=== PATIENT | female | born 1940 | race Caucasian/White ===

== ENCOUNTER 2017-11-30 14:39 | Emergency (ER) | payer MEDICARE, OTHER ==
[~2017-11-30] VITALS: Ht 160 cm; Wt 55.0 kg
[~2017-11-30 14:39] MED LIST: CARB25TA9 PO; CLON0.5T PO; LANS30CA PO; LEVO88TA2 PO; MEMA28CA PO; OXYB5TAB8 PO; PRIM50TA5 PO; VENL225T PO; ZOCO40TA PO
[2017-11-30 14:46] VITALS: BP 139/63; PULSE 60; RESP 18; TEMP 98.3; O2SAT 99
--- NOTE | 2017-11-30 15:33 | PD ---
HPI Chief Complaint: Complaint Time Seen by Provider: 15:26 Travel History International Travel<30 days: No Contact w/Intl Traveler<30days: No Traveled to known affect area: No History of Present Illness HPI patient per home health nurse and has been more aggressive, scratching, fighting and pushing people around. per patient was taken to [facility] on sunday ? where according to they did xray, cat scan , blood work , urinalysis and diagnosed her with UTI and placed her on keflex....attempted to obtain records from [facility]. today patient arrives with family for same complaint that has not improved since starting medication and are concerned for a psychiatric conditiion...per FAMILY no psych history presently all:?codeine pmhx: dementia, alzheimer's dementia, kidney stone, hep c, hyst PFSH Past Medical History Alzheimer's Disease: Yes Dementia: Yes Hepatitis: Yes (HEP C) Kidney Stones: Yes Past Surgical History Hysterectomy: Yes Social History Alcohol Use: Yes (OCCASIONAL WINE) Tobacco Use: No Substance Use: No Allergies-Medications (Allergen,Severity, Reaction): Coded Allergies: codeine (Verified Allergy, Severe, 11/30/17) No Known Allergies (Unverified Adverse Reaction, Unknown, 11/30/17) Reported Meds & Prescriptions Reported Meds & Active Scripts Active Reported Lansoprazole 30 Mg Capdr 30 Mg PO DAILY Ditropan (Oxybutynin Chloride) 5 Mg Tab 5 Mg PO DAILY Venlafaxine ER 24 HR (Venlafaxine HCl) 225 Mg Tab 225 Mg PO DAILY Namenda Xr (Memantine) 28 Mg Caper 28 Mg PO DAILY Zocor (Simvastatin) 40 Mg Tab 40 Mg PO DAILY Clonazepam 0.5 Mg Tab 0.5 Mg PO DAILY Carbidopa-Levodopa 25-100 Mg Tab 1 Tab PO Q8HR Primidone 50 Mg Tab 50 Mg PO Q6HR Levothyroxine (Levothyroxine Sodium) 88 Mcg Tab 0.5 Tab PO DAILY Review of Systems ROS Limitations: Altered Mental Status General / Constitutional: No: Fever Eyes: No: Visual changes HENT: No: Headaches Cardiovascular: No: Chest Pain or Discomfort Respiratory: No: Shortness of Breath Gastrointestinal: No: Abdominal Pain Genitourinary: No: Dysuria Musculoskeletal: No: Pain Skin: No Rash Neurologic: No: Weakness Psychiatric: No: Depression Endocrine: No: Polydipsia Hematologic/Lymphatic: No: Easy Bruising Physical Exam Narrative GENERAL: elderly white female, with resting tremor. SKIN: Warm and dry. HEAD: Atraumatic. Normocephalic. EYES: Pupils equal and round. No scleral icterus. No injection or drainage. ENT: No nasal bleeding or discharge. Mucous membranes pink and moist. NECK: Trachea midline. No JVD. CARDIOVASCULAR: Regular rate and rhythm. RESPIRATORY: No accessory muscle use. Clear to auscultation. Breath sounds equal bilaterally. GASTROINTESTINAL: Abdomen soft, non-tender, nondistended. Hepatic and splenic margins not palpable. MUSCULOSKELETAL: Extremities without clubbing, cyanosis, or edema. No obvious deformities. NEUROLOGICAL: confused, appears pleasant at this time... No obvious cranial nerve deficits. Motor grossly within normal limits. Five out of 5 muscle strength in the arms and legs. Normal speech. PSYCHIATRIC: AGITATED BUT NONVIOLENT THUS FAR Data Data Last Documented VS Vital Signs Date Time Temp Pulse Resp B/P (MAP) Pulse Ox O2 Delivery O2 Flow Rate FiO2 11/30/17 14:46 98.3 60 18 139/63 (88) 99 Orders Orders Complete Blood Count With Diff (11/30/17 15:10) Comprehensive Metabolic Panel (11/30/17 15:10) Urinalysis - C+S If Indicated (11/30/17 15:10) Psych Screen (11/30/17 15:10) Ceftriaxone Inj (Rocephin Inj) (11/30/17 16:00) Admit Order (Ed Use Only) (11/30/17 18:23) Labs Laboratory Tests Test 11/30/17 16:25 11/30/17 17:50 White Blood Count 6.9 TH/MM3 Red Blood Count 4.21 MIL/MM3 Hemoglobin 12.9 GM/DL Hematocrit 37.7 % Mean Corpuscular Volume 89.5 FL Mean Corpuscular Hemoglobin 30.6 PG Mean Corpuscular Hemoglobin Concent 34.2 % Red Cell Distribution Width 13.4 % Platelet Count 174 TH/MM3 Mean Platelet Volume 8.7 FL Neutrophils (%) (Auto) 56.7 % Lymphocytes (%) (Auto) 33.2 % Monocytes (%) (Auto) 8.2 % Eosinophils (%) (Auto) 1.3 % Basophils (%) (Auto) 0.6 % Neutrophils # (Auto) 3.9 TH/MM3 Lymphocytes # (Auto) 2.3 TH/MM3 Monocytes # (Auto) 0.6 TH/MM3 Eosinophils # (Auto) 0.1 TH/MM3 Basophils # (Auto) 0.0 TH/MM3 CBC Comment DIFF FINAL Differential Comment Blood Urea Nitrogen 16 MG/DL Creatinine 1.09 MG/DL Random Glucose 83 MG/DL Total Protein 6.2 GM/DL Albumin 3.3 GM/DL Calcium Level 8.2 MG/DL Alkaline Phosphatase 65 U/L Aspartate Amino Transf (AST/SGOT) 16 U/L Alanine Aminotransferase (ALT/SGPT) 15 U/L Total Bilirubin 0.6 MG/DL Sodium Level 145 MEQ/L Potassium Level 3.4 MEQ/L Chloride Level 109 MEQ/L Carbon Dioxide Level 27.5 MEQ/L Anion Gap 9 MEQ/L Estimat Glomerular Filtration Rate 48 ML/MIN MDM Medical Decision Making Medical Screen Exam Complete: Yes Emergency Medical Condition: Yes Medical Record Reviewed: Yes Differential Diagnosis ams v uti v electrolyte abnl v dementia deterioration Narrative Course CMP HAS CREAT 1.09 AND GFR 48.... CBC IS NEG FOR LEUKOCYTOSIS, NEG FOR ANEMIA, NEG FOR LEFT SHIFT, NO ABNL PLATELET REVIEWED MEMORIAL RECORDS WITH CT HEAD NEG, UA WITH MOD BACTERIA, LEUK 3+ Diagnosis Primary Impression: medical clearance Additional Impressions: uti dementia Admitting Information Admitting Physician Requests: Jose Cruz Van MD Nov 30, 2017 15:33
[2017-11-30] MEDS ORDERED: cefTRIAXone INJ 1,000 MG in SODIUM CHLORIDE 0.9% INJ 100 ML IV ONE (16:00)
[2017-11-30 16:50] LABS: AUTOMATED NEUTROPHIL # 3.9 TH/MM3 (1.8-7.7); BASOPHIL % 0.6 % (0.0-2.0); EOSINOPHIL # 0.1 TH/MM3 (0-0.4); EOSINOPHIL % 1.3 % (0.0-4.0); HEMATOCRIT 37.7 % (35.0-46.0); HEMOGLOBIN 12.9 GM/DL (11.6-15.3); LYMPH % 33.2 % (9.0-44.0); LYMPHOCYTE # 2.3 TH/MM3 (1.0-4.8); MEAN CELL VOLUME 89.5 FL (80.0-100.0); MEAN CORPUSCULAR HEMOGLOBIN 30.6 PG (27.0-34.0); MEAN CORPUSCULAR HGB CONC 34.2 % (32.0-36.0); MEAN PLATELET VOLUME 8.7 FL (7.0-11.0); MONO % 8.2 % (0.0-8.0); MONOCYTE # 0.6 TH/MM3 (0-0.9); NEUT % 56.7 % (16.0-70.0); PLATELET COUNT 174 TH/MM3 (150-450); RED BLOOD COUNT 4.21 MIL/MM3 (4.00-5.30); RED CELL DISTRIBUTION WIDTH 13.4 % (11.6-17.2); WHITE BLOOD COUNT 6.9 TH/MM3 (4.0-11.0)
[2017-11-30 17:07] LABS: ALBUMIN 3.3 GM/DL (3.4-5.0); AST (GOT) 16 U/L (15-37); BICARBONATE 27.5 MEQ/L (21.0-32.0); BLOOD UREA NITROGEN 16 MG/DL (7-18); CALCIUM 8.2 MG/DL (8.5-10.1); CHLORIDE 109 MEQ/L (98-107); CREATININE 1.09 MG/DL (0.50-1.00); GLOMERULAR FILTRATION RATE 48 ML/MIN (>89); GLUCOSE,RANDOM 83 MG/DL (74-106); SODIUM (NA) 145 MEQ/L (136-145)
[2017-11-30 17:12] LABS: ALKALINE PHOSPHATASE 65 U/L (45-117); ALT (GPT) 15 U/L (10-53); TOTAL BILIRUBIN ADULT 0.6 MG/DL (0.2-1.0); TOTAL PROTEIN 6.2 GM/DL (6.4-8.2)
[2017-11-30 18:38] LABS: BACTERIA, URINE RARE /hpf; BILIRUBIN, URINE NEG (NEG); BLOOD, URINE NEG (NEG); GLUCOSE,URINE NEG (NEG); KETONE, URINE NEG (NEG); MUCUS URINE FEW /lpf (OCC); NITRITE,URINE NEG (NEG); PH, URINE 5.5 (5.0-8.5); URINE COLOR YELLOW (YELLW/STRAW); URINE LEUKOCYTE ESTERASE TRACE (NEG)
[2017-11-30] MEDS ORDERED: SODIUM CHLORIDE 0.9% FLUSH 10 ML FLUSH IV FLUSH PRN (18:45)
--- NOTE | 2017-11-30 19:13 | PD ---
History of Present Illness Chief Complaint: Complaint Time Seen by Provider: 18:15 Travel History International Travel<30 Days: No Contact w/Intl Traveler<30days: No Known affected area: No Legal Status Legal Status: Voluntary History of Present Illness: History of Present Illness HPI Patient is a 77-year-old, female, living with her with reported history of depression, anxiety, dementia, essential tremors, UTI diagnosed 2 days ago at [facility] who as her per home health nurse and has been more aggressive, scratching, fighting and pushing people around and increased episodes of crying. Today patient arrives with family for same complaint that has not improved since starting medication and are concerned for her from a psychiatric perspective. The patient was seen at her neurologist office Dr. Shaver, this past Sunday and her psychiatric medications were changed with increase of Ativan to 1 mg twice a day, continued on Klonopin 0.5 mg 3 times a day, Lexapro 20 mg and Namenda XR 28 mg. EMR reviewed. Javon at bedside and assist with providing some clinical information. No previous contact with [facility] psychiatry. The patient is seen in main ED. Alert and oriented to person, knows it's Sunday , states the date is the 2017. She knows she is at [facility]. She is able to name the president omaira Pagan and name 2 past presidents - Unruly and Tito. She is dressed in hospital gown with fair hygiene. She has involuntary and rhythmic shaking of her head and her upper extremities. She tells me she has been diagnosed with essential tremors. She is engaging and cooperative. Her voice is tremulous. She makes an effort in engaging in interview. She does not appear to be internally stimulated. There is no paranoia, no delusions. She does report that at times she hears noises "like a muriel-muriel train going by my head or Zonia balls going through my head." When asked for reason of being in the hospital she states" to get rid of this sorry but feeling from my mind. I am needing to get everyone's help to help me get better". Patient admits to feeling sad. She also acknowledges feeling angry" when I don't get my way " but she denies being aggressive. Mood is depressed. She denies suicidal ideation but does tell me that she thinks about suicide and about dying. She reports she sleeps well and has a good appetite. Her concentration is fair. Fund of knowledge appears to be average. The is concerned about the changes in the patient's behaviors as she normally is not aggressive. He is also concerned due to her increase in crying and her lack of motivation to do things they used to do in the past. He is concerned about taking the patient home since she has not shown improvement despite being on antibiotics. He states that in the past when she's had an UTI once she gets on the medication she is better. PFSH Past Medical History Medical History: Unable to Obtain Alzheimer's Disease: Yes Dementia: Yes Hepatitis: Yes (HEP C) Kidney Stones: Yes Influenza Vaccination: No Past Surgical History Surgical History: Unable to Obtain Hysterectomy: Yes Psychiatric History Psychiatric History Hx Psychiatric Treatment: IN 2016 HOSPITALIZED X 3 WEEKS IN PSYCH INPATIENT UNIT IN [place] History of Inpatient Treatment: Yes Guns or firearms in home: No Social History Born in [place]. twice. Has been to current for 15 years. She has a daughter and a son. 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 Hx Alcohol Use: Yes (OCCASIONAL WINE) Hx Tobacco Use: No Hx Substance Use: No Hx of Substance Use Treatment: No Family Psychiatric History Negative Allergies-Medications (Allergen,Severity, Reaction): Coded Allergies: codeine (Verified Allergy, Severe, 11/30/17) No Known Allergies (Unverified Allergy, Unknown, 11/30/17) Reported Meds & Prescriptions Reported Meds & Active Scripts Active Reported Lansoprazole 30 Mg Capdr 30 Mg PO DAILY Ditropan (Oxybutynin Chloride) 5 Mg Tab 5 Mg PO DAILY Venlafaxine ER 24 HR (Venlafaxine HCl) 225 Mg Tab 225 Mg PO DAILY Namenda Xr (Memantine) 28 Mg Caper 28 Mg PO DAILY Zocor (Simvastatin) 40 Mg Tab 40 Mg PO DAILY Clonazepam 0.5 Mg Tab 0.5 Mg PO DAILY Carbidopa-Levodopa 25-100 Mg Tab 1 Tab PO Q8HR Primidone 50 Mg Tab 50 Mg PO Q6HR Levothyroxine (Levothyroxine Sodium) 88 Mcg Tab 0.5 Tab PO DAILY Review of Systems Genitourinary: COMPLAINS OF: Urinary frequency Neurologic: COMPLAINS OF: Tremor, Poor Balance Psychiatric: COMPLAINS OF: Anxiety, Depression Mental Status Examination Appearance: Appropriate Consciousness: Alert Orientation: Person, Place, Date/Time (partial), Situation Speech: Hesitant, Slow, Other (tremulous) Language: Adequate Fund of Knowledge: Adequate Attention and Concentration: Adequate Memory: Impaired Mood: Sad Affect: Appropriate Thought Process & Associations: Intact, Logical Thought Content: Appropriate Hallucination Type: Auditory (bells, train) Delusion Type: None Suicidal Ideation: No Suicidal Plan: No Suicidal Intention: No Homicidal Ideation: No Homicidal Plan: No Homicidal Intention: No Insight: Fair Judgment: Poor MDM Medical Decision Making Medical Record Reviewed: Yes Assessment/Plan Patient is a 77-year-old, female, living with her with reported history of depression, anxiety, dementia, essential tremors, UTI diagnosed 2 days ago at [facility] who as her per home health nurse and has been more aggressive, scratching, fighting and pushing people around and increased episodes of crying. Patient also with recent changes in psychiatric medication by her neurologist Dr. Shaver. At this time the patient meets criteria for inpatient psychiatric admission for further observation, for medication evaluation and adjustment, and for safety. Orders Orders Complete Blood Count With Diff (11/30/17 15:10) Comprehensive Metabolic Panel (11/30/17 15:10) Urinalysis - C+S If Indicated (11/30/17 15:10) Psych Screen (11/30/17 15:10) Ceftriaxone Inj (Rocephin Inj) (11/30/17 16:00) Admit Order (Ed Use Only) (11/30/17 18:23) Place In Observation (11/30/17 ) Vital Signs (Adult) CAROL.Q4H (11/30/17 18:31) Activity Oob With Assistance (11/30/17 18:31) Diet Heart Healthy (11/30/17 Dinner) Sodium Chloride 0.9% Flush (Ns Flush) (11/30/17 18:45) Sodium Chloride 0.9% Flush (Ns Flush) (11/30/17 21:00) Results Vital Signs Date Time Temp Pulse Resp B/P (MAP) Pulse Ox O2 Delivery O2 Flow Rate FiO2 11/30/17 14:46 98.3 60 18 139/63 (88) 99 Laboratory Tests Test 11/30/17 16:25 11/30/17 17:50 White Blood Count 6.9 Red Blood Count 4.21 Hemoglobin 12.9 Hematocrit 37.7 Mean Corpuscular Volume 89.5 Mean Corpuscular Hemoglobin 30.6 Mean Corpuscular Hemoglobin Concent 34.2 Red Cell Distribution Width 13.4 Platelet Count 174 Mean Platelet Volume 8.7 Neutrophils (%) (Auto) 56.7 Lymphocytes (%) (Auto) 33.2 Monocytes (%) (Auto) 8.2 Eosinophils (%) (Auto) 1.3 Basophils (%) (Auto) 0.6 Neutrophils # (Auto) 3.9 Lymphocytes # (Auto) 2.3 Monocytes # (Auto) 0.6 Eosinophils # (Auto) 0.1 Basophils # (Auto) 0.0 CBC Comment DIFF FINAL Differential Comment Blood Urea Nitrogen 16 Creatinine 1.09 Random Glucose 83 Total Protein 6.2 Albumin 3.3 Calcium Level 8.2 Alkaline Phosphatase 65 Aspartate Amino Transf (AST/SGOT) 16 Alanine Aminotransferase (ALT/SGPT) 15 Total Bilirubin 0.6 Sodium Level 145 Potassium Level 3.4 Chloride Level 109 Carbon Dioxide Level 27.5 Anion Gap 9 Estimat Glomerular Filtration Rate 48 Urine Color YELLOW Urine Turbidity CLEAR Urine pH 5.5 Urine Specific [place] 1.021 Urine Protein TRACE Urine Glucose (UA) NEG Urine Ketones NEG Urine Occult Blood NEG Urine Nitrite NEG Urine Bilirubin NEG Urine Urobilinogen 2.0 Urine Leukocyte Esterase TRACE Urine WBC 2 Urine Bacteria RARE Urine Mucus FEW Microscopic Urinalysis Comment CULT NOT INDICATED Diagnosis Primary Impression: Major depressive disorder Additional Impressions: dementia Anxiety Admitting Information Admitting Physician Requests: Admit Problem Qualifiers Primary Impression: Major depressive disorder Qualified Codes: F33.1 - Major depressive disorder, recurrent, moderate Kemi Pruitt Nov 30, 2017 19:13
[2017-11-30] MEDS ORDERED: diphenhydrAMINE HCL 50 MG/ML VIAL IM ONE (20:00)
[2017-11-30] MEDS ORDERED: OLANZapine IM 10 MG VIAL IM ONE (20:00)
[2017-11-30] MEDS ORDERED: ASPI81CH6 CHEW (20:44)
[2017-11-30] MEDS ORDERED: LEVO.05 PO (20:44)
[2017-11-30] MEDS ORDERED: CEPH500C PO (20:44)
[2017-11-30] MEDS ORDERED: ESCI20TA PO (20:44)
[2017-11-30] MEDS ORDERED: LORA1TAB12 PO (20:44)
[2017-11-30] MEDS ORDERED: SODIUM CHLORIDE 0.9% FLUSH 10 ML FLUSH IV FLUSH SCH (21:00)
== END 2017-11-30 21:40 ==
LOC: NEPD 14:39 → NEDA 18:24 → UNDOADMOB 18:24 → NEPD 21:40
DX: F33.1 Major depressive disorder, recurrent, moderate (principal); N39.0 Urinary tract infection, site not specified; F02.80 Dementia in other diseases classified elsewhere, unspecified severity, without behavioral disturbance, psychotic disturbance, mood disturbance, and anxiety; F41.9 Anxiety disorder, unspecified; G30.9 Alzheimer's disease, unspecified; Z86.19 Personal history of other infectious and parasitic diseases; Z87.442 Personal history of urinary calculi; Z88.5 Allergy status to narcotic agent; Z79.899 Other long term (current) drug therapy
CPT/HCPCS: 80053; 81001; 85025; 96374; 99285; J0696

== ENCOUNTER 2017-11-30 20:22 | Inpatient (IN) | payer MEDICARE, OTHER ==
[2017-11-30] MEDS ORDERED: LORA1TAB12 PO (20:44)
[2017-11-30] MEDS ORDERED: CEPH500C PO (20:44)
[2017-11-30] MEDS ORDERED: LEVO.05 PO (20:44)
[2017-11-30] MEDS ORDERED: ESCI20TA PO (20:44)
[2017-11-30] MEDS ORDERED: ASPI81CH6 CHEW (20:44)
[2017-11-30 22:00] VITALS: BP 138/82; PULSE 59; RESP 18; TEMP 97.4; O2SAT 98
[2017-11-30] MEDS ORDERED: ACETAMINOPHEN 325 MG TAB PO PRN (22:00)
[2017-11-30] MEDS ORDERED: MAGNESIUM HYDROXIDE SUSP 30 ML CUP PO PRN (22:00)
[2017-11-30] MEDS ORDERED: ALUMINUM/MAGNESIUM/SIMETH 30 ML CUP PO PRN (22:00)
[2017-12-01 06:22] VITALS: BP 164/71; PULSE 52; RESP 15; TEMP 98; O2SAT 95
[2017-12-01] MEDS ORDERED: PNEUMOCOCCAL POLYVALENT INJ 25 MCG/0.5 ML SYR IM ONE (09:00)
[2017-12-01 13:23] LABS: BICARBONATE 28.2 MEQ/L (21.0-32.0); BLOOD UREA NITROGEN 12 MG/DL (7-18); CALCIUM 8.9 MG/DL (8.5-10.1); CHLORIDE 107 MEQ/L (98-107); CREATININE 1.03 MG/DL (0.50-1.00); GLOMERULAR FILTRATION RATE 52 ML/MIN (>89); GLUCOSE,RANDOM 123 MG/DL (74-106); SODIUM (NA) 144 MEQ/L (136-145)
[2017-12-01 13:24] LABS: CHOLESTEROL 149 MG/DL (120-200); TRIGLYCERIDES 92 MG/DL (42-150)
[2017-12-01 13:49] LABS: CHOLESTEROL/ HDL RATIO 2.14 RATIO; HDL CHOLESTEROL 69.5 MG/DL (40.0-60.0); LDL CHOLESTEROL 61 MG/DL (0-99)
[2017-12-01 13:57] LABS: HEMOGLOBIN A1C 5.5 % (4.3-6.0)
--- NOTE | 2017-12-01 14:14 | HHI.HP ---
Provisional Diagnosis Admission Date Nov 30, 2017 at 21:49 Home I. Dementia with behavioral disturbances Certification of Person's Competence To Provide Express and Informed Consent I have personally examined Meaghan Heller , a person being served at [facility] on, Dec 01, 2017 14:10. Express and informed consent means consent voluntarily given in writing, by a competent person, after sufficient explanation and disclosure of the subject matter involved to enable the person to make a knowing and willful decision without any element of force, fraud, deceit, duress, or other form of constraint or coercion. This person is 18 years of age or older, is not now known to be incompetent to consent to treatment with a guardian advocate, and does not have a health care surrogate or proxy currently making medical treatment decisions. I have found this person to be one of the following: [] Competent to provide express and informed consent, as defined above, for voluntary admission to this facility and is competent to provide express and informed consent for treatment. He/she has the consistent capacity to make well reasoned, willful, and knowing decisions concerning his or her medical or mental health treatment. The person fully and consistently understands the purpose of the admission for examination/placement and is fully capable of personally exercising all rights assured [place] [x] Incompetent to provide express and informed consent to voluntary admission, and this is incompetent to provide express and informed consent to treatment. The person must be transferred to involuntary status and a petition for a guardian advocate filed with the Circuit Court. [] Refusing to provide express and informed consent to voluntary admission but is competent to provide express and informed consent for treatment. The person must be discharged or transferred to involuntary status. Form shall be completed within 24 hours of a person's arrival at the receiving facility and filed in the clinical record of each person: 1. Admitted on a voluntary basis 2. Permitted to provide express and informed consent to his/her own treatment 3. Allowed to transfer from involuntary to voluntary status 4. Prior to permitting a person to consent to his or her own treatment after having been previously found incompetent to consent to treatment. History of Present Illness Capacity: Lacks Capacity HPI The patient is a 77-year-old, female, domiciled with her with reported history of depression, anxiety, dementia, no previous psychiatric hospitalizations, no previous suicidal attempts, she is not in psychotropics, medical history of essential tremors, UTI diagnosed 2 days ago at [facility] who as her per home health nurse and has been more aggressive, scratching, fighting and pushing people around and increased episodes of crying. Today patient arrives with family for same complaint that has not improved since starting medication and are concerned for her from a psychiatric perspective. The patient was seen at her neurologist office Dr. Shaver, this past Sunday and her psychiatric medications were changed with increase of Ativan to 1 mg twice a day, continued on Klonopin 0.5 mg 3 times a day, Lexapro 20 mg and Namenda XR 28 mg.EMR reviewed. Javon at bedside and assist with providing some clinical information. She was admitted yesterday by Ms. Pruitt after being assessed in the ER. Today on psychiatric evaluation the patient is very oppositional, refusing to talk to me, to cooperate, she seems to be quite sedated was brought in by medications given before. As per Ms. Pruitt documentation yesterday : "patient is seen in main ED. Alert and oriented to person, knows it's Sunday, states the date is the 2017. She knows she is at [facility]. She is able to name the president omaira Pagan and name 2 past presidents -Unruly and Tito. She is dressed in hospital gown with fair hygiene. She has involuntary and rhythmic shaking of her head and her upper extremities. She tells me she has been diagnosed with essential tremors. She is engaging and cooperative. Her voice is tremulous. She makes an effort in engaging in interview. She does not appear to be internally stimulated. There is no paranoia, no delusions. She does report that at times she hears noises "like a muriel-muriel train going by my head or Zonia balls going through my head." When asked for reason of being in the hospital she states" to get rid of this sorry but feeling from my mind. I am needing to get everyone's help to help me get better". Patient admits to feeling sad. She also acknowledges feeling angry" when I don't get my way " but she denies being aggressive. Mood is depressed. She denies suicidal ideation but does tell me that she thinks about suicide and about dying. She reports she sleeps well and has a good appetite. Her concentration is fair. Fund of knowledge appears to be average." The is concerned about the changes in the patient's behaviors as she normally is not aggressive. He is also concerned due to her increase in crying and her lack of motivation to do things they used to do in the past. He is concerned about taking the patient home since she has not shown improvement despite being on antibiotics. He states that in the past when she's had an UTI once she gets on the medication she is better. EMR reviewed. Javon at bedside and assist with providing some clinical information. No previous contact with [facility] psychiatry. Past Family Social History Coded Allergies: codeine (Verified Allergy, Severe, 11/30/17) No Known Allergies (Unverified Allergy, Unknown, 11/30/17) Reported Medications Cephalexin (Cephalexin) 500 Mg Cap, 500 MG PO Q12H for Infection, CAP 0 Refills 11/30/17 Lorazepam (Lorazepam) 1 Mg Tab, 1 MG PO BID Y for ANXIETY, TAB 0 Refills 11/30/17 Levothyroxine (Synthroid) 50 Mcg Tab, 50 MCG PO DAILY for Thyroid, #30 TAB 0 Refills 11/30/17 Aspirin (Aspirin Low Dose) 81 Mg Chew, 81 MG CHEW DAILY, TAB 0 Refills 11/30/17 Escitalopram (Escitalopram) 20 Mg Tab, 20 MG PO DAILY, #30 TAB 0 Refills 11/30/17 Memantine Er (Namenda Xr) 28 Mg Caper, 28 MG PO DAILY for Alzheimer Disease, # 30 CAP 0 Refills 09/21/16 Clonazepam (Clonazepam) 0.5 Mg Tab, 0.5 MG PO DAILY, #60 TAB 0 Refills 09/21/16 Discontinued Reported Medications Levothyroxine (Levothyroxine) 88 Mcg Tab, 0.5 TAB PO DAILY for Thyroid, #30 TAB 0 Refills 09/21/16 Lansoprazole (Lansoprazole) 30 Mg Capdr, 30 MG PO DAILY, CAP 0 Refills 09/21/16 Oxybutynin (Ditropan) 5 Mg Tab, 5 MG PO DAILY for Urinary Symptom Managemen, # 60 TAB 0 Refills 09/21/16 Venlafaxine ER 24 HR (Venlafaxine ER 24 HR) 225 Mg Tab, 225 MG PO DAILY, #30 TAB 0 Refills 09/21/16 Simvastatin (Zocor) 40 Mg Tab, 40 MG PO DAILY for Cholesterol Management, #30 TAB 0 Refills 09/21/16 Carbidopa-Levodopa (Carbidopa-Levodopa) 25-100 Mg Tab, 1 TAB PO Q8HR for Parkinson Disease Mgmt, #90 TAB 0 Refills 09/21/16 Primidone (Primidone) 50 Mg Tab, 50 MG PO Q6HR for Control Seizures, #60 TAB 0 Refills 09/21/16 Current Medications Medications (Trade) Dose Ordered Sig/Amber Route Start Time Stop Time Status Last Admin (Tylenol) 650 mg Q4H PRN PO 11/30/17 22:00 (Milk Of Magnesia Liq) 30 ml DAILY PRN PO 11/30/17 22:00 (Mag-Al Plus Susp Liq) 30 ml Q6H PRN PO 11/30/17 22:00 Physical Exam Vital Signs Vital Signs Date Time Temp Pulse Resp B/P (MAP) Pulse Ox O2 Delivery O2 Flow Rate FiO2 12/01/17 06:22 98.0 52 15 164/71 (102) 95 I/O 12/01/17 12/01/17 12/02/17 08:00 16:00 00:00 Intake Total 0 ml 120 ml Balance 0 ml 120 ml Lab Results Test 12/01/17 12:40 Blood Urea Nitrogen 12 MG/DL Creatinine 1.03 MG/DL Random Glucose 123 MG/DL Calcium Level 8.9 MG/DL Sodium Level 144 MEQ/L Potassium Level 3.4 MEQ/L Chloride Level 107 MEQ/L Carbon Dioxide Level 28.2 MEQ/L Anion Gap 9 MEQ/L Estimat Glomerular Filtration Rate 52 ML/MIN Triglycerides Level 92 MG/DL Cholesterol Level 149 MG/DL LDL Cholesterol 61 MG/DL HDL Cholesterol 69.5 MG/DL Cholesterol/HDL Ratio 2.14 RATIO Vitamin B12 Level 408 PG/ML 25-Hydroxy Vitamin D Total 11.8 ng/ML Thyroid Stimulating Hormone 3rd Gen 0.587 uIU/ML Mental Status Examination Appearance: Appropriate Consciousness: Asleep Orientation: Person Motor Activity: Abnormal gait Suicidal Ideation: No Suicidal Plan: No Suicidal Intention: No Homicidal Ideation: No Homicidal Plan: No Homicidal Intention: No Insight: Poor Judgment: Poor (Limited at this moment due to level of sedation) Assessment & Plan Problem List: (1) Dementia with behavioral disturbance ICD Codes: F03.91 - Unspecified dementia with behavioral disturbance Assessment & Plan: Patient reported very aggressive, confused, agitated, increased paranoia by her a longterm. Patient is admission for psychiatric stabilization and safety Patient was medically cleared yesterday in the ER. UTI treated. We'll start Seroquel 12.5 mg twice a day to help with aggressive behavior. No agitation, no aggressive behavior at this moment, the patient is more sedated than anything. bin worker intervention for psychosocial assessment, group and individual therapies, collateral information, safe discharge planning. We'll consult psychiatry for second opinion. Consult medicine to follow up underlying medical conditions Assessment & Plan Estimated LOS: Zac Parker MD Dec 01, 2017 14:14
[2017-12-01] MEDS ORDERED: PILL SPLITTER OTHER PRN (14:30)
[2017-12-01 18:42] VITALS: BP 146/71; PULSE 75; RESP 16; TEMP 98.1; O2SAT 97
[2017-12-02 06:00] VITALS: BP 119/60; PULSE 61; RESP 18; TEMP 97.8; O2SAT 96
[2017-12-02] MEDS: QUEtiapine FUMARATE 25 MG TAB PO SCH ×2 (08:28→12:00)
--- NOTE | 2017-12-02 13:22 | EKG ---
Date Performed: 12/01/2017 Time Performed: 10:59:46 PTAGE: 77 years EKG: Sinus rhythm MARKED LEFT AXIS DEVIATION ABNORMAL ECG PREVIOUS TRACING : 07/30/2003 11.42 DOCTOR: Juvenal Claudio Interpretating Date/Time 12/02/2017 13:19:15
--- NOTE | 2017-12-02 14:45 | HHI.PYPN ---
Subjective Remarks Patient was seen and case discussed with nursing. Patient is tearful and confused throughout the interview. Oriented 2. Poor insight concerning her admission. No outbursts, behaving well on the unit. Denies suicidal or homicidal ideation intent or plan Mental Status Examination Appearance: Appropriate Consciousness: Asleep Orientation: Person Motor Activity: Abnormal gait Speech: Unremarkable Language: Adequate Fund of Knowledge: Inadequate Attention and Concentration: Adequate Memory: Impaired Mood: Sad, Anxious Affect: Labile Thought Process & Associations: Disorganized Thought Content: Preoccupations Hallucination Type: None Suicidal Ideation: No Suicidal Plan: No Suicidal Intention: No Homicidal Ideation: No Homicidal Plan: No Homicidal Intention: No Insight: Poor Judgment: Poor (Limited at this moment due to level of sedation) Results Vitals/IOs Vital Signs Date Time Temp Pulse Resp B/P (MAP) Pulse Ox O2 Delivery O2 Flow Rate FiO2 12/02/17 06:00 97.8 61 18 119/60 (79) 96 Intake and Output 12/02/17 12/02/17 12/03/17 08:00 16:00 00:00 Intake Total 540 ml Balance 540 ml Assessment & Plan Problem List: (1) Dementia with behavioral disturbance ICD Codes: F03.91 - Unspecified dementia with behavioral disturbance Assessment & Plan Continue current treatment plan Justification for Cont. Inpt. Patient would decompensate in a less restrictive setting Ronal Guaman DO Dec 02, 2017 14:45
[2017-12-02 18:11] VITALS: BP 121/58; PULSE 57; RESP 17; TEMP 98.1; O2SAT 98
[2017-12-02] MEDS ORDERED: LORazepam 1 MG TAB PO ONE (20:45)
[2017-12-03 05:21] VITALS: BP 126/82; PULSE 58; RESP 17; TEMP 98.1; O2SAT 97
[2017-12-03] MEDS: QUEtiapine FUMARATE 25 MG TAB PO SCH ×3 (08:27→17:37)
[2017-12-03] MEDS ORDERED: CLON0.5T PO (10:27)
--- NOTE | 2017-12-03 15:11 | HHI.PYPN ---
Subjective Remarks Patient seen in day room with nurse Aleyda, chart reviewed, patient discussed with nurse, patient sitting somewhat tremulous, overall cooperative with me she is so diffusely confused but is where she is in a hospital minutes 18 did not know it was November or the day of the week. She did not that she has essential tremor coding auditor trivial and should not worry about them. She does state she wishes to go home with her . But we need to verify the relationship between she and her . She said she has been for 18 years and she does wish to go home. For now continue treatment will adjust the patient's Seroquel dose to noon and 6 PM canceling of the 9 AM dose. We will hope to talk patient's to gain further information about the relationship will also have PT and OT assess this lady Review of Systems Except as stated in HPI: all other systems reviewed are Neg Mental Status Examination Appearance: Appropriate Consciousness: Asleep Orientation: Person Motor Activity: Abnormal gait Speech: Unremarkable Language: Adequate Fund of Knowledge: Inadequate Attention and Concentration: Adequate Memory: Impaired Mood: Sad, Anxious Affect: Labile Thought Process & Associations: Disorganized Thought Content: Preoccupations Hallucination Type: None Suicidal Ideation: No Suicidal Plan: No Suicidal Intention: No Homicidal Ideation: No Homicidal Plan: No Homicidal Intention: No Insight: Poor Judgment: Poor (Limited at this moment due to level of sedation) Results Vitals/IOs Vital Signs Date Time Temp Pulse Resp B/P (MAP) Pulse Ox O2 Delivery O2 Flow Rate FiO2 12/03/17 05:21 98.1 58 17 126/82 (97) 97 Intake and Output 12/03/17 12/03/17 12/04/17 08:00 16:00 00:00 Intake Total 0 ml Balance 0 ml Assessment & Plan Problem List: (1) Dementia with behavioral disturbance ICD Codes: F03.91 - Unspecified dementia with behavioral disturbance Assessment & Plan Estimated LOS: days patient remains demented somewhat confused and appears somewhat anxious. Will adjust dose of Seroquel. Attempted to be patient's to discuss relationship and placement issues Justification for Cont. Inpt. At this time patient decompensated placed a lower level of care Discharge Planning Hopefully to return to the home situation Problem Qualifiers (1) Dementia with behavioral disturbance: Qualified Codes: G30.1 - Alzheimer's disease with late onset; F02.81 - Dementia in other diseases classified elsewhere with behavioral disturbance Pk Glass MD Dec 03, 2017 15:11
[2017-12-03 18:24] VITALS: BP 137/63; PULSE 60; RESP 16; TEMP 98.4; O2SAT 97
[2017-12-04 06:17] VITALS: BP 166/68; PULSE 57; RESP 18; TEMP 98.1; O2SAT 97
[2017-12-04] MEDS: QUEtiapine FUMARATE 25 MG TAB PO SCH (11:47)
[2017-12-04] MEDS ORDERED: ESCI20TA PO (12:20)
[2017-12-04] MEDS ORDERED: LEVO.05 PO (12:20)
[2017-12-04] MEDS ORDERED: ASPI81CH6 CHEW (12:20)
[2017-12-04] MEDS ORDERED: MEMA28CA PO (12:20)
[2017-12-04] MEDS ORDERED: SERO25TA PO (12:20)
--- NOTE | 2017-12-04 12:26 | HHI.DS ---
Psychiatry Discharge Summary Inpatient Psychiatric care?: Yes Advance Directive: No Reason Not Provided: Due to Patient Condition Mental Health AdvanceDirective: No Health Care Proxy: No Admission Admission Date Nov 30, 2017 at 21:49 Admission Diagnosis: (1) Dementia with behavioral disturbance ICD Code: F03.91 - Unspecified dementia with behavioral disturbance Brief History The patient is a 77-year-old, female, domiciled with her with reported history of depression, anxiety, dementia, no previous psychiatric hospitalizations, no previous suicidal attempts, she is not in psychotropics, medical history of essential tremors, UTI diagnosed 2 days ago at [facility] who as her per home health nurse and has been more aggressive, scratching, fighting and pushing people around and increased episodes of crying. Today patient arrives with family for same complaint that has not improved since starting medication and are concerned for her from a psychiatric perspective. The patient was seen at her neurologist office Dr. Shaver, this past Sunday and her psychiatric medications were changed with increase of Ativan to 1 mg twice a day, continued on Klonopin 0.5 mg 3 times a day, Lexapro 20 mg and Namenda XR 28 mg.EMR reviewed. Javon at bedside and assist with providing some clinical information. She was admitted yesterday by [facility] after being assessed in the ER. Today on psychiatric evaluation the patient is very oppositional, refusing to talk to me, to cooperate, she seems to be quite sedated was brought in by medications given before. As per Len [facility]mond documentation yesterday : "patient is seen in main ED. Alert and oriented to person, knows it's Sunday, states the date is the 2017. She knows she is at [facility]. She is able to name the president omaira Pagan and name 2 past presidents -Unruly and Tito. She is dressed in hospital gown with fair hygiene. She has involuntary and rhythmic shaking of her head and her upper extremities. She tells me she has been diagnosed with essential tremors. She is engaging and cooperative. Her voice is tremulous. She makes an effort in engaging in interview. She does not appear to be internally stimulated. There is no paranoia, no delusions. She does report that at times she hears noises "like a muriel-muriel train going by my head or Zonia balls going through my head." When asked for reason of being in the hospital she states" to get rid of this sorry but feeling from my mind. I am needing to get everyone's help to help me get better". Patient admits to feeling sad. She also acknowledges feeling angry" when I don't get my way " but she denies being aggressive. Mood is depressed. She denies suicidal ideation but does tell me that she thinks about suicide and about dying. She reports she sleeps well and has a good appetite. Her concentration is fair. Fund of knowledge appears to be average." The is concerned about the changes in the patient's behaviors as she normally is not aggressive. He is also concerned due to her increase in crying and her lack of motivation to do things they used to do in the past. He is concerned about taking the patient home since she has not shown improvement despite being on antibiotics. He states that in the past when she's had an UTI once she gets on the medication she is better. EMR reviewed. Javon at bedside and assist with providing some clinical information. No previous contact with [facility] psychiatry. Tobacco Use In Past 30 Days: No Tobacco Past 30 Days Alcohol Use: 2-4 Times Per Month Hospital Course Patient's hospital course was uneventful, she was calm cooperative from day 1 did integrate well into the newly with the community. Was compliant with medication. Remain somewhat diffusely confused but redirectable. She denies suicidality homicidality voices or visions. The Xanax medication with patient' s family and her . They wish her to return home today. At this time I feel patient respect maximum benefit of this hospitalization thus will be discharged today per family with Rx 1 month follow-up with PCP Results Blood Pressure 166 / 68 Vital Signs Date Time Temp Pulse Resp B/P (MAP) Pulse Ox O2 Delivery O2 Flow Rate FiO2 12/04/17 06:17 98.1 57 18 166/68 (100) 97 Laboratory Tests Test 12/01/17 12:40 Creatinine 1.03 MG/DL (0.50-1.00) Random Glucose 123 MG/DL (74-106) Potassium Level 3.4 MEQ/L (3.5-5.1) Estimat Glomerular Filtration Rate 52 ML/MIN (>89) HDL Cholesterol 69.5 MG/DL (40.0-60.0) 25-Hydroxy Vitamin D Total 11.8 ng/ML (30-100) Laboratory Results Test 12/01/17 12:40 Cholesterol Level 149 MG/DL (120-200) HDL Cholesterol 69.5 MG/DL (40.0-60.0) Hemoglobin A1c 5.5 % (4.3-6.0) LDL Cholesterol 61 MG/DL (0-99) Triglycerides Level 92 MG/DL (42-150) Summary of Procedures None done Pending results at discharge: No Medications # of Antipsychotic meds at D/C: 1 Approp Antipsych med options 1 - Minimum of three failed multiple trials of monotherapy. 2 - Documented plan to taper to monotherapy due to previous use of multiple meds OR cross-taper in progress at D/C. 3 - Documentation of augmentation of Clozapine. 4 - Justification other than those listed in allowable values 1-3, document here : Discharge Discharge Date: Dec 04, 2017 Discharge Diagnosis: (1) Dementia with behavioral disturbance Diagnosis: Principal ICD Code: F03.91 - Unspecified dementia with behavioral disturbance Pt Condition on Discharge: Stable Discharge Disposition: Discharge Home Discharge Instructions Diet Instructions: As Tolerated, No Restrictions Activities you can perform: Regular-No Restrictions Scheduled Appointment: PCP Discharge Time > 30 minutes Mental Status Examination Appearance: Appropriate Consciousness: Asleep Orientation: Person Motor Activity: Abnormal gait Speech: Unremarkable Language: Adequate Fund of Knowledge: Inadequate Attention and Concentration: Adequate Memory: Impaired Mood: Sad, Anxious Affect: Labile Thought Process & Associations: Disorganized Thought Content: Preoccupations Hallucination Type: None Suicidal Ideation: No Suicidal Plan: No Suicidal Intention: No Homicidal Ideation: No Homicidal Plan: No Homicidal Intention: No Insight: Poor Judgment: Poor (Limited at this moment due to level of sedation) Discharge/Advance Care Plan Health Problems: (1) Dementia with behavioral disturbance Goals to promote your health * To prevent worsening of your condition and complications * To maintain your health at the optimal level Directions to meet your goals Take your medications as prescribed Follow your dietary instruction Follow activity as directed Keep your appointments as scheduled Take your immunizations and boosters as scheduled If your symptoms worsen call your PCP, if no PCP go to Urgent Care Center or Emergency Room For 23/04 questions related to your inpatient stay or results of tests pending at discharge, please contact Dr. Pk Glass at Smoking is Dangerous to Your Health. Avoid second hand smoking Problem Qualifiers (1) Dementia with behavioral disturbance: Qualified Codes: G30.1 - Alzheimer's disease with late onset; F02.81 - Dementia in other diseases classified elsewhere with behavioral disturbance Pk Glass MD Dec 04, 2017 12:26
--- NOTE | 2017-12-04 14:27 | PD.TTN ---
Patient Problems 1. Discharge planning 2. Medication compliance 3. Knowledge deficit 4. Lack of coping skills Progress Toward Goals Provider Present: Dr. Lynn Glass Provider Input: 12/03/17 if improved could return to her home with services Psychiatric Counselors Present: Yari Queen LCSW Psych Therapist Input: 12/03/17 and daughter visited this weekend, DCF has investigated, patient appears wanting to return home, she is improving , has HHC that can resume Group Spec/RT/OT/HAYWARD Present: Adán Schulte OT Group Spec/RT/OT/HAYWARD Input: 12/03/17 attends occasionally Yari Queen LCSW Dec 04, 2017 14:27
== END 2017-12-04 15:00 | disposition home or self-care (01) | DRG 57 ==
LOC: H250 21:49
PROVIDERS: ADMIT Psychiatry & Neurology Psychiatry; ATTEND Psychiatry & Neurology Psychiatry
DX: G30.1 Alzheimer's disease with late onset (principal); F02.81 Dementia in other diseases classified elsewhere, unspecified severity, with behavioral disturbance; N39.0 Urinary tract infection, site not specified; F32.9 Major depressive disorder, single episode, unspecified; F41.9 Anxiety disorder, unspecified; G25.0 Essential tremor; R26.9 Unspecified abnormalities of gait and mobility; Z88.5 Allergy status to narcotic agent; Z86.19 Personal history of other infectious and parasitic diseases; Z87.442 Personal history of urinary calculi; Z79.899 Other long term (current) drug therapy
CPT/HCPCS: 80048; 80061; 82306; 82607; 83036; 84443; 90732; 93005